=== PATIENT | male | born 1950 | race Caucasian/White ===

== ENCOUNTER 2018-09-08 07:54 | Outpatient (CLI) | payer BC ==
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
== END 2018-09-08 07:55 | disposition home or self-care (01) ==
LOC: WCC 07:54
PROVIDERS: ATTEND Family Medicine
DX: N30.41 Irradiation cystitis with hematuria (principal); J45.909 Unspecified asthma, uncomplicated; I10 Essential (primary) hypertension
CPT/HCPCS: 99203; G0463

== ENCOUNTER 2018-09-23 12:55 | Outpatient (CLI) | payer BC | END 2018-09-23 12:56 | disposition home or self-care (01) | LOC: WCC 12:55 | PROVIDERS: ATTEND Family Medicine | DX: N30.41 Irradiation cystitis with hematuria (principal) | CPT/HCPCS: 99183 ==

== ENCOUNTER 2018-09-24 13:05 | Outpatient (CLI) | payer BC | END 2018-09-24 13:06 | disposition home or self-care (01) | LOC: HBO 13:05 | PROVIDERS: ATTEND Family Medicine | DX: N30.41 Irradiation cystitis with hematuria (principal) | CPT/HCPCS: 99183 ==

== ENCOUNTER 2018-09-29 13:00 | Outpatient (CLI) | payer BC | END 2018-09-29 13:01 | disposition home or self-care (01) | LOC: HBO 13:00 | PROVIDERS: ATTEND Family Medicine | DX: N30.41 Irradiation cystitis with hematuria (principal) | CPT/HCPCS: 99183 ==

== ENCOUNTER 2018-09-30 14:19 | Outpatient (CLI) | payer BC | END 2018-09-30 14:20 | disposition home or self-care (01) | LOC: HBO 14:19 | PROVIDERS: ATTEND Family Medicine | DX: N30.41 Irradiation cystitis with hematuria (principal) | CPT/HCPCS: 99183 ==

== ENCOUNTER 2018-10-01 13:11 | Outpatient (CLI) | payer BC | END 2018-10-01 13:12 | disposition home or self-care (01) | LOC: HBO 13:11 | PROVIDERS: ATTEND Family Medicine | DX: N30.41 Irradiation cystitis with hematuria (principal) | CPT/HCPCS: 99183 ==

== ENCOUNTER 2018-10-02 13:01 | Outpatient (CLI) | payer BC | END 2018-10-02 13:02 | disposition home or self-care (01) | LOC: HBO 13:01 | PROVIDERS: ATTEND Family Medicine | DX: N30.41 Irradiation cystitis with hematuria (principal) | CPT/HCPCS: 99183 ==

== ENCOUNTER 2018-10-20 10:10 | Outpatient (CLI) | payer BC | END 2018-10-20 10:11 | disposition home or self-care (01) | LOC: WCC 10:10 | PROVIDERS: ATTEND Family Medicine | DX: N30.41 Irradiation cystitis with hematuria (principal) | CPT/HCPCS: 99183 ==

== ENCOUNTER 2018-10-21 13:00 | Outpatient (CLI) | payer BC | END 2018-10-21 13:01 | disposition home or self-care (01) | LOC: WCC 13:00 | PROVIDERS: ATTEND Family Medicine | DX: N30.41 Irradiation cystitis with hematuria (principal) | CPT/HCPCS: G0277 ==

== ENCOUNTER 2018-10-22 13:21 | Outpatient (CLI) | payer BC | END 2018-10-22 13:22 | disposition home or self-care (01) | LOC: WCC 13:21 | PROVIDERS: ATTEND Family Medicine | DX: N30.41 Irradiation cystitis with hematuria (principal) | CPT/HCPCS: 99183 ==

== ENCOUNTER 2018-10-23 12:48 | Outpatient (CLI) | payer BC | END 2018-10-23 12:49 | disposition home or self-care (01) | LOC: WCC 12:48 | PROVIDERS: ATTEND Family Medicine | DX: N30.41 Irradiation cystitis with hematuria (principal) | CPT/HCPCS: G0277 ==

== ENCOUNTER → 2018-10-27 | Outpatient (CLI) | payer BC | LOC: HBO 13:00 | PROVIDERS: ATTEND Family Medicine | DX: N30.41 Irradiation cystitis with hematuria (principal) | CPT/HCPCS: 99211; G0463 ==

== ENCOUNTER 2018-10-28 08:46 | Outpatient (CLI) | payer BC | END 2018-10-28 08:47 | disposition home or self-care (01) | LOC: HBO 08:46 | PROVIDERS: ATTEND Family Medicine | DX: N30.41 Irradiation cystitis with hematuria (principal) | CPT/HCPCS: 99211; G0463 ==

== ENCOUNTER 2018-11-04 07:45 | Outpatient (CLI) | payer BC | END 2018-11-04 07:46 | disposition home or self-care (01) | LOC: WCC 07:45 | PROVIDERS: ATTEND Family Medicine | DX: N30.41 Irradiation cystitis with hematuria (principal) | CPT/HCPCS: 99183 ==

== ENCOUNTER 2018-11-05 10:24 | Outpatient (CLI) | payer BC | END 2018-11-05 10:25 | disposition home or self-care (01) | LOC: WCC 10:24 → HBO 10:25 | PROVIDERS: ATTEND Family Medicine | DX: N30.41 Irradiation cystitis with hematuria (principal) | CPT/HCPCS: 99183 ==

== ENCOUNTER 2018-11-06 07:46 | Outpatient (CLI) | payer BC | END 2018-11-06 07:47 | disposition home or self-care (01) | LOC: HBO 07:46 | PROVIDERS: ATTEND Family Medicine | DX: N30.41 Irradiation cystitis with hematuria (principal) | CPT/HCPCS: 99183 ==

== ENCOUNTER 2018-11-10 07:56 | Outpatient (CLI) | payer BC | END 2018-11-10 07:57 | disposition home or self-care (01) | LOC: WCC 07:56 | PROVIDERS: ATTEND Family Medicine | DX: N30.41 Irradiation cystitis with hematuria (principal) | CPT/HCPCS: G0277 ==

== ENCOUNTER 2018-11-11 07:43 | Outpatient (CLI) | payer BC | END 2018-11-11 07:44 | disposition home or self-care (01) | LOC: HBO 07:43 | PROVIDERS: ATTEND Family Medicine | DX: N30.41 Irradiation cystitis with hematuria (principal) | CPT/HCPCS: 99183 ==

== ENCOUNTER 2025-10-12 13:20 | Outpatient (CLI) | payer MEDICARE ==
[2025-10-12 14:55] LABS: #Basophils 0.05 10x3/uL (0.0-0.2); #Eosinophils 0.14 10x3/uL (0.0-0.7); #Monocytes 0.58 10x3/uL (0.11-0.59); #Neutrophils 4.98 10x3/uL (1.40-6.50); %Basophils 0.7 % (0.0-1.0); %Eosinophils 1.9 % (0.0-10.0); %Lymphocytes 22.8 % (21.0-51.0); %Monocytes 7.7 % (0.0-10.0); %Neutrophils 66.5 % (42.0-75.0); Hematocrit 37.1 % (42.0-52.0); Hemoglobin 11.8 g/dL (14.0-18.0); Mean Corpuscular Hemoglobin 29.0 pg (27.0-31.0); Mean Corpuscular Volume 91.2 fL (78.0-98.0); Platelet Count 168 10x3/uL (130-400); Red Blood Cell (RBC) Count 4.07 mill/uL (4.70-6.10); White Blood Cell (WBC) Count 7.49 10x3/uL (4.8-10.8)
[2025-10-12 15:04] LABS: Anion Gap 16 mmol/L (10-20); BUN (Urea Nitrogen) 14 mg/dL (8.4-25.7); Calc. Creatinine Clearance 0 mL/min (70-130); Calcium 9.3 mg/dL (7.8-10.44); Carbon Dioxide 26 mmol/L (23-31); Chloride 106 mmol/L (98-107); Glucose 147 mg/dL (83-110); Potassium 3.4 mmol/L (3.5-5.1); Sodium 145 mmol/L (136-145)
[2025-10-12 15:09] LABS: INR-International Normal Ratio 1.0; Prothrombin Time 12.9 sec (12.0-14.7)
[2025-10-12 15:10] LABS: PTT 35.2 sec (22.9-36.1)
[2025-10-12 16:45] LABS: Glucose, Urine (Dipstick) Normal (Negative); Leukocyte 500 Leu/uL (Negative); Protein, Urine (Dipstick) 50 mg/dL (Neg-Trace); Specific Gravity, Urine 1.020 (1.002-1.036); WBC/HPF Greater than 50 HPF (0-3)
[2025-10-12 17:07] LABS: Bacteria/HPF 1+ HPF (None Seen)
== END 2025-10-12 13:21 | disposition home or self-care (01) ==
LOC: LABBT 13:20
PROVIDERS: ATTEND Urology
DX: Z01.818 Encounter for other preprocedural examination (principal); C61 Malignant neoplasm of prostate; N20.0 Calculus of kidney; N30.40 Irradiation cystitis without hematuria; N99.112 Postprocedural membranous urethral stricture, male; R31.9 Hematuria, unspecified; R35.0 Frequency of micturition
CPT/HCPCS: 80048; 81001; 85025; 85610; 85730; 87086; 93005; 93010

== ENCOUNTER 2025-10-14 08:37 | Inpatient (IN) | payer MEDICARE ==
[2025-10-14] MEDS ORDERED: Rocuronium Bromide 10 MG/ML (10ML VIAL) ONE ×2 (11:34→12:37)
[2025-10-14] MEDS ORDERED: fentaNYL PF 100 MCG/2 ML SYRINGE ONE (11:34)
[2025-10-14] MEDS ORDERED: LevoFLOXacin D5W 500 mg (100 mL) BAG ONE (12:11)
[2025-10-14] MEDS ORDERED: cefTRIAXone (ROCEPHIN) 1 GM VIAL ONE (12:27)
[2025-10-14] MEDS ORDERED: PROPOFOL 200 MG/20 ML VIAL ONE (12:43)
[2025-10-14] MEDS ORDERED: Glycopyrrolate 0.2 MG/ML 5 ML SYRINGE ONE (13:45)
[2025-10-14] MEDS ORDERED: NEOSTIGMINE 3 MG/3 ML SYRINGE ONE ×2 (13:45→13:46)
[2025-10-14] MEDS ORDERED: Ondansetron PF 4 MG/2 ML Vial ONE (13:45)
[2025-10-14] MEDS ORDERED: Oxybutynin 5 MG TAB ONE (14:50)
[2025-10-14] MEDS ORDERED: Calcium Carbonate 500 MG ChewTAB PO PRN (17:44)
[2025-10-14] MEDS ORDERED: Senokot S 8.6-50 MG TAB PO PRN (17:44)
[2025-10-14] MEDS ORDERED: Acetaminophen 325 MG TAB PO PRN (17:44)
[2025-10-14] MEDS ORDERED: Guaifenesin DM 100-10/5 ML UDCUP PO PRN (17:44)
[2025-10-14] MEDS ORDERED: Vancomycin HCl 1.5 GM VIAL ONE (18:02)
[2025-10-14] MEDS: VANCOMYCIN 2 GRAM/400 ML Premix BAG IVPB SCH (18:10)
[2025-10-14 18:20] LABS: #Basophils Less than 0.03 10x3/uL (0.0-0.2); #Eosinophils Less than 0.03 10x3/uL (0.0-0.7); #Monocytes 0.04 10x3/uL (0.11-0.59); #Neutrophils 9.58 10x3/uL (1.40-6.50); %Basophils 0.2 % (0.0-1.0); %Eosinophils 0.0 % (0.0-10.0); %Lymphocytes 2.2 % (21.0-51.0); %Monocytes 0.4 % (0.0-10.0); %Neutrophils 96.8 % (42.0-75.0); Hematocrit 34.1 % (42.0-52.0); Hemoglobin 10.9 g/dL (14.0-18.0); Mean Corpuscular Hemoglobin 29.6 pg (27.0-31.0); Mean Corpuscular Volume 92.7 fL (78.0-98.0); Platelet Count 125 10x3/uL (130-400); Red Blood Cell (RBC) Count 3.68 mill/uL (4.70-6.10); White Blood Cell (WBC) Count 9.90 10x3/uL (4.8-10.8)
[2025-10-14] MEDS ORDERED: Albuterol 2.5 MG (3 mL) NEB NEB SCH (18:30)
[2025-10-14 18:36] LABS: ALT (SGPT) 14 U/L (Less than 45); AST (SGOT) 16 U/L (11-34); Albumin 3.1 g/dL (3.1-4.5); Alkaline Phosphatase 50 U/L (40-110); Anion Gap 15 mmol/L (10-20); BUN (Urea Nitrogen) 19 mg/dL (8.4-25.7); Bilirubin, Total 1.1 mg/dL (0.3-1.2); Calc. Creatinine Clearance 50 mL/min (70-130); Calcium 7.9 mg/dL (7.8-10.44); Carbon Dioxide 19 mmol/L (23-31); Chloride 113 mmol/L (98-107); Globulin 2.2 g/dL (2.4-3.5); Glucose 82 mg/dL (83-110); Potassium 3.8 mmol/L (3.5-5.1); Sodium 143 mmol/L (136-145)
[2025-10-14 18:56] VITALS: BMI 27.8
[2025-10-14] MEDS ORDERED: Albuterol 2.5 MG (3 mL) NEB NEB PRN (19:17)
[2025-10-14 20:22] LABS: Bacteria/HPF None Seen HPF (None Seen); Glucose, Urine (Dipstick) 30 mg/dL (Negative); Leukocyte Negative Leu/uL (Negative); Protein, Urine (Dipstick) 300 mg/dL (Neg-Trace); Specific Gravity, Urine 1.020 (1.002-1.036)
[2025-10-14 20:27] LABS: RBC/HPF Greater than 50 HPF (0-3); WBC/HPF 0-3 HPF (0-3)
[2025-10-14] MEDS: Pantoprazole 40 MG VIAL IVP SCH (20:33)
[2025-10-15] MEDS: Norepinephrine 8 MG/0.9% NS 250 ML IVPB SCH (00:50)
[2025-10-15 04:08] LABS: Vancomycin, Random 12.6 ug/mL (See Comment)
[2025-10-15 04:10] LABS: Anion Gap 13 mmol/L (10-20); BUN (Urea Nitrogen) 22 mg/dL (8.4-25.7); CRP, High Sensitivity at Bryan 5.15 mg/dL (< or = 0.5); Calc. Creatinine Clearance 44 mL/min (70-130); Calcium 7.7 mg/dL (7.8-10.44); Carbon Dioxide 20 mmol/L (23-31); Chloride 110 mmol/L (98-107); Glucose 90 mg/dL (83-110); Potassium 3.9 mmol/L (3.5-5.1); Sodium 139 mmol/L (136-145)
[2025-10-15 04:31] LABS: Anisocytosis SLIGHT = 6-15 cells HPF (0-5); Platelet Adequacy Comment Platelets Decreased; Polychromasia SLIGHT = 2-3 cells HPF (0-2)
[2025-10-15 04:33] LABS: Hematocrit 30.1 % (42.0-52.0); Hemoglobin 9.6 g/dL (14.0-18.0); Mean Corpuscular Hemoglobin 30.3 pg (27.0-31.0); Mean Corpuscular Volume 95.0 fL (78.0-98.0); Platelet Count 121 10x3/uL (130-400); Red Blood Cell (RBC) Count 3.17 mill/uL (4.70-6.10); White Blood Cell (WBC) Count 45.31 10x3/uL (4.8-10.8)
[2025-10-15] MEDS: Vancomycin 1 GM Premix Bag IVPB SCH (09:00)
[2025-10-15] MEDS: Pantoprazole 40 MG VIAL IVP SCH (09:35)
[2025-10-15] MEDS: Ondansetron PF 4 MG/2 ML Vial IVP PRN (10:57)
[2025-10-15 12:44] LABS: Vancomycin, Random 8.1 ug/mL (See Comment)
[2025-10-15] MEDS: Vancomycin 1.5 GM / NS 500ML VIAL-2-BAG IVPB SCH (13:26)
[2025-10-15 15:42] LABS: Bacteria/HPF None Seen HPF (None Seen); CAUTI Indications for Culture Fever or rigors; Glucose, Urine (Dipstick) Normal (Negative); Leukocyte Negative Leu/uL (Negative); Protein, Urine (Dipstick) 30 mg/dL (Neg-Trace); RBC/HPF Greater than 50 HPF (0-3); Specific Gravity, Urine 1.012 (1.002-1.036); WBC/HPF 0-3 HPF (0-3)
[2025-10-15 15:44] LABS: Urine Culture Reflex No No
[2025-10-16 07:02] LABS: #Basophils 0.06 10x3/uL (0.0-0.2); #Eosinophils Less than 0.03 10x3/uL (0.0-0.7); #Monocytes 1.39 10x3/uL (0.11-0.59); #Neutrophils 29.89 10x3/uL (1.40-6.50); %Basophils 0.2 % (0.0-1.0); %Eosinophils 0.0 % (0.0-10.0); %Lymphocytes 2.5 % (21.0-51.0); %Monocytes 4.2 % (0.0-10.0); %Neutrophils 89.6 % (42.0-75.0); Hematocrit 28.4 % (42.0-52.0); Hemoglobin 9.5 g/dL (14.0-18.0); Mean Corpuscular Hemoglobin 30.1 pg (27.0-31.0); Mean Corpuscular Volume 89.9 fL (78.0-98.0); Platelet Count 88 10x3/uL (130-400); Red Blood Cell (RBC) Count 3.16 mill/uL (4.70-6.10); White Blood Cell (WBC) Count 33.33 10x3/uL (4.8-10.8)
[2025-10-16 07:07] LABS: Anion Gap 9 mmol/L (10-20); BUN (Urea Nitrogen) 24 mg/dL (8.4-25.7); Calc. Creatinine Clearance 63 mL/min (70-130); Calcium 7.8 mg/dL (7.8-10.44); Carbon Dioxide 23 mmol/L (23-31); Chloride 109 mmol/L (98-107); Glucose 90 mg/dL (83-110); Potassium 3.4 mmol/L (3.5-5.1); Sodium 138 mmol/L (136-145); Vancomycin, Random 13.2 ug/mL (See Comment)
[2025-10-16] MEDS: VANCOMYCIN 1.75 GM/350 ML Premix BAG IVPB SCH (11:59)
[2025-10-17 06:07] LABS: #Basophils 0.06 10x3/uL (0.0-0.2); #Eosinophils 0.15 10x3/uL (0.0-0.7); #Monocytes 0.90 10x3/uL (0.11-0.59); #Neutrophils 22.09 10x3/uL (1.40-6.50); %Basophils 0.2 % (0.0-1.0); %Eosinophils 0.6 % (0.0-10.0); %Lymphocytes 3.5 % (21.0-51.0); %Monocytes 3.6 % (0.0-10.0); %Neutrophils 89.2 % (42.0-75.0); Hematocrit 31.1 % (42.0-52.0); Hemoglobin 10.1 g/dL (14.0-18.0); Mean Corpuscular Hemoglobin 29.4 pg (27.0-31.0); Mean Corpuscular Volume 90.4 fL (78.0-98.0); Platelet Count 102 10x3/uL (130-400); Red Blood Cell (RBC) Count 3.44 mill/uL (4.70-6.10); White Blood Cell (WBC) Count 24.80 10x3/uL (4.8-10.8)
[2025-10-17 06:28] LABS: Vancomycin, Random 13.0 ug/mL (See Comment)
[2025-10-17 06:29] LABS: Anion Gap 8 mmol/L (10-20); BUN (Urea Nitrogen) 24 mg/dL (8.4-25.7); Calc. Creatinine Clearance 70 mL/min (70-130); Calcium 8.1 mg/dL (7.8-10.44); Carbon Dioxide 25 mmol/L (23-31); Chloride 108 mmol/L (98-107); Glucose 93 mg/dL (83-110); Potassium 3.5 mmol/L (3.5-5.1); Sodium 137 mmol/L (136-145)
[2025-10-17] MEDS: PNEUMOC 20-VAL CONJ-DIP CRM/PF 0.5 ML SYRINGE IM ONE (08:02)
[2025-10-18 05:03] LABS: #Basophils 0.04 10x3/uL (0.0-0.2); #Eosinophils 0.30 10x3/uL (0.0-0.7); #Monocytes 0.82 10x3/uL (0.11-0.59); #Neutrophils 11.53 10x3/uL (1.40-6.50); %Basophils 0.3 % (0.0-1.0); %Eosinophils 2.1 % (0.0-10.0); %Lymphocytes 8.7 % (21.0-51.0); %Monocytes 5.8 % (0.0-10.0); %Neutrophils 81.8 % (42.0-75.0); Hematocrit 32.0 % (42.0-52.0); Hemoglobin 10.4 g/dL (14.0-18.0); Mean Corpuscular Hemoglobin 29.1 pg (27.0-31.0); Mean Corpuscular Volume 89.6 fL (78.0-98.0); Platelet Count 120 10x3/uL (130-400); Red Blood Cell (RBC) Count 3.57 mill/uL (4.70-6.10); White Blood Cell (WBC) Count 14.10 10x3/uL (4.8-10.8)
[2025-10-18 05:25] LABS: Anion Gap 13 mmol/L (10-20); Carbon Dioxide 24 mmol/L (23-31); Chloride 107 mmol/L (98-107); Potassium 3.5 mmol/L (3.5-5.1); Sodium 140 mmol/L (136-145)
[2025-10-18 05:27] LABS: BUN (Urea Nitrogen) 17 mg/dL (8.4-25.7); Calc. Creatinine Clearance 89 mL/min (70-130); Calcium 8.0 mg/dL (7.8-10.44); Glucose 96 mg/dL (83-110)
[2025-10-18] MEDS: cefTRIAXone\\ROCEPHIN 2 GM in Sodium Chloride 0.9% 100 ML IVPB SCH (13:59)
[2025-10-19 05:16] LABS: #Basophils 0.05 10x3/uL (0.0-0.2); #Eosinophils 0.32 10x3/uL (0.0-0.7); #Monocytes 0.78 10x3/uL (0.11-0.59); #Neutrophils 7.65 10x3/uL (1.40-6.50); %Basophils 0.5 % (0.0-1.0); %Eosinophils 3.1 % (0.0-10.0); %Lymphocytes 12.2 % (21.0-51.0); %Monocytes 7.5 % (0.0-10.0); %Neutrophils 74.0 % (42.0-75.0); Hematocrit 35.3 % (42.0-52.0); Hemoglobin 11.7 g/dL (14.0-18.0); Mean Corpuscular Hemoglobin 29.3 pg (27.0-31.0); Mean Corpuscular Volume 88.3 fL (78.0-98.0); Platelet Count 141 10x3/uL (130-400); Red Blood Cell (RBC) Count 4.00 mill/uL (4.70-6.10); White Blood Cell (WBC) Count 10.34 10x3/uL (4.8-10.8)
[2025-10-19 05:26] LABS: Anion Gap 12 mmol/L (10-20); BUN (Urea Nitrogen) 18 mg/dL (8.4-25.7); Calc. Creatinine Clearance 94 mL/min (70-130); Calcium 8.6 mg/dL (7.8-10.44); Carbon Dioxide 25 mmol/L (23-31); Chloride 107 mmol/L (98-107); Glucose 103 mg/dL (83-110); Potassium 3.8 mmol/L (3.5-5.1); Sodium 140 mmol/L (136-145)
[2025-10-19 05:27] LABS: CRP, High Sensitivity at Bryan 2.64 mg/dL (< or = 0.5)
[2025-10-19 15:54] VITALS: BP 150/80; TEMP 98.9
== END 2025-10-19 17:16 | disposition home or self-care (01) | DRG 854 ==
LOC: SDC 08:37 → CCU 17:21 → SURG B 10-15 17:58
PROVIDERS: ADMIT Student in an Organized Health Care Education/Training Program; ATTEND Internal Medicine
PROC: 0T778DZ Dilation of Left Ureter with Intraluminal Device, Via Natural or Artificial Opening Endoscopic (ICD-10-PCS; principal; 2025-10-14)
PROC: 0TC78ZZ Extirpation of Matter from Left Ureter, Via Natural or Artificial Opening Endoscopic (ICD-10-PCS; 2025-10-14)
PROC: 3E03329 Introduction of Other Anti-infective into Peripheral Vein, Percutaneous Approach (ICD-10-PCS; 2025-10-14)
DX: A41.9 Sepsis, unspecified organism (principal); E87.20 Acidosis, unspecified; N13.2 Hydronephrosis with renal and ureteral calculous obstruction; N30.40 Irradiation cystitis without hematuria; N17.9 Acute kidney failure, unspecified; R65.20 Severe sepsis without septic shock; N99.112 Postprocedural membranous urethral stricture, male; G47.33 Obstructive sleep apnea (adult) (pediatric); Z98.890 Other specified postprocedural states; Z80.42 Family history of malignant neoplasm of prostate; J45.909 Unspecified asthma, uncomplicated; N18.30 Chronic kidney disease, stage 3 unspecified; Z79.899 Other long term (current) drug therapy
CPT/HCPCS: 36415; 74420; 80048; 80053; 80202; 81001; 82365; 83605; 84145; 85025; 85610; 85730; 86141; 87040; 87077; 87086; 88300; 93005; 93010; A4333; C1726; C1747; C1758; C1769; C2617; J0696; J1956; J2183; J2185; J2405; J2470; J2550; J2704; J3375; J7030; J7120

== ENCOUNTER 2025-10-26 09:46 | Day surgery (SDC) | payer MEDICARE ==
[2025-10-26 10:42] VITALS: BP 127/73; TEMP 97.7
== END 2025-10-26 10:01 | disposition home or self-care (01) ==
LOC: ONC/OP 09:46
PROVIDERS: ATTEND Internal Medicine Infectious Disease
DX: N30.41 Irradiation cystitis with hematuria (principal)
CPT/HCPCS: 99211; G0463